=== PATIENT | female | born 1980 | race Hispanic/Latino ===

== ENCOUNTER 2018-04-15 23:40 | Inpatient (IN) | payer OTHER ==
--- OUTSIDE RECORDS SUMMARY | 2018-04-16 00:12 | XMS REPORT ---
:1980 Author Organization eClinicalWorks Care Team Providers Name Role Phone Reese Murphy Provider Role Unavailable Allergies No Known Allergies Problems Problem Type Condition Code Onset Dates Condition Status Problem Chronic neck pain M54.2 Active Problem Seasonal and perennial allergic J30.9 Active rhinitis Problem Sinus disorder J34.9 Active Problem GERD without esophagitis K21.9 Active Assessment Proteinuria, unspecified type R80.9 Active Problem Depression with anxiety F41.8 Active Assessment Tobacco use disorder F17.200 Active Assessment GERD without esophagitis K21.9 Active Problem Proteinuria, unspecified type R80.9 Active Problem Cancer C80.1 Active Problem Pollen allergies J30.1 Active Problem Mixed hyperlipidemia E78.2 Active Problem Controlled type 2 diabetes mellitus E11.9 Active without complication, without long-term current use of insulin Problem Dermatitis L30.9 Active Problem Depression F32.9 Active Assessment Mixed hyperlipidemia E78.2 Active Assessment Controlled type 2 diabetes mellitus E11.9 Active without complication, without long-term current use of insulin Problem Seasonal allergic rhinitis, J30.2 Active unspecified trigger Problem Elevated blood pressure reading R03.0 Active without diagnosis of hypertension Problem Asthma J45.909 Active Problem Gastroesophageal reflux disease K21.9 Active without esophagitis Assessment Depression with anxiety F41.8 Active Problem Anxiety F41.9 Active Problem Tobacco use disorder F17.200 Active Medications Medication Code Code Instructions Start End Date Status Dosage System Date Omeprazole [facility] 71841516980 40 MG Orally Active 1 capsule Once a day Zyrtec [facility] 57845390900 10 MG Orally Active 1 tablet Allergy Once a day Lipitor ND 06197983509 20 MG Orally Active 1 tablet Once a day Chantix ND 62467961021 1 MG Orally MarchJul 18, Active 1 tablet Continuing Twice a day 2017 Month Hernan Chantix [facility] 30592888595 0.5 MG X 11 & 1 March Inactive as directed Starting MG X 42 Orally 2017 Month Hernan use as directed Lisinopril ND 48207964798 5 MG Orally March Active 1 tablet Once a day 2017 Chantix [facility] 14659289532 1 MG Orally March Active 1 tablet Continuing Twice a day 2017 Month Hernan Prilosec OTC [facility] 07114191035 20 MG Orally Active 1 tablet Once a day Metformin HCl [facility] 26875957625 1000 MG Orally Active 1 tablet Twice a day with meals Results No Known Results Summary Purpose eClinicalWorks Submission
[2018-04-16] MEDS ORDERED: ONDANSETRON 4 MG/2 ML VIAL IV PRN (00:53)
[2018-04-16] MEDS ORDERED: AZITHROMYCIN IV 500 MG in NA CHLORIDE 0.9% 250 ML IVPB SCH ×2 (00:53→21:00)
--- NOTE | 2018-04-16 01:04 | P.HP ---
Certification for Inpatient Patient admitted to: Inpatient With expected LOS: >2 Midnights Practitioner: I am a practitioner with admitting privileges, knowledge of patient current condition, hospital course, and medical plan of care. Services: Services provided to patient in accordance with Admission requirements found in Title 42 Section 412.3 of the Code of Federal Regulations Patient History Date of Service: 04/16/18 Reason for admission: pneumonia History of Present Illness: Ms Croft os a 38 years old woman with history of DM II, dyslipidemia, who start about 5 days ago with progressive SOB, associated with cough and fever. The patient went to [facility] yesterday, and was diagnosed with pneumonia. She was discharged home with oral antibiotics, steroids and breathing treatments. However, today her SOB was significanly worse. Work up at [facility], WBC WNL, no fever, CT chest remarkable for RLL opacity consistent with pnuemonia. Subsequently the patient received Rocephin IV in [facility]. Then the patient was transferred to our facility for admission and treatment. Allergies No Known Allergies Allergy (Verified 04/16/18 00:22) - Past Medical/Surgical History Has patient received pneumonia vaccine in the past: No Diabetic: Yes -: NIDDM -: HLD -: Bronchitis -: Non-Hodgkins Lymphoma -: X2 - Family History Father -: Hypertension, Lung disease, Diabetes, Cancer, Liver disease Notes: pulmonary fibrosis Mother -: Hypertension, Diabetes Notes: hyperthyroid - Social History Smoking Status: Current every day smoker Counseled patient to stop smoking for: less than 10 minutes Alcohol use: Yes CD- Drugs: No Caffeine use: Yes Place of Residence: Home Review of Systems 10-point ROS is otherwise unremarkable Physical Examination - Physical Exam General: Alert, In no apparent distress HEENT: Atraumatic, PERRLA, Mucous membr. moist/pink, EOMI, Sclerae nonicteric Neck: Supple, 2+ carotid pulse no bruit, No LAD, Without JVD or thyroid abnormality Respiratory: Diminished, Crackles/rales, Expiratory wheezes Cardiovascular: Regular rate/rhythm, Normal S1 S2 Gastrointestinal: Normal bowel sounds, No tenderness Musculoskeletal: No tenderness Integumentary: No rashes Neurological: Normal speech, Normal strength at 5/5 x4 extr, Normal tone, Normal affect Lymphatics: No axilla or inguinal lymphadenopathy Assessment and Plan - Problems (Diagnosis) (1) Pneumonia Current Visit: Yes Status: Acute (2) Diabetes mellitus Current Visit: Yes Status: Acute Qualifiers: Diabetes mellitus type: type 2 Diabetes mellitus intermediate insulin use: without termite technician use Diabetes mellitus complication status: with unspecified complications Qualified Code(s): E11.8 - Type 2 diabetes mellitus with unspecified complications (3) Dyslipidemia Current Visit: Yes Status: Acute - Plan The patient will be admitted to the hospital due to tight lower lobe pneumonia. Will start treatment with IV steroids due to significant bronchospasm, breathing treatments and IV steroids. Will order SSI for blood sugar control. - Advance Directives Does patient have a Living Will: No Does patient have a Durable POA for Healthcare: No - Code Status/Comfort Care Code Status Assessed: Yes Code Status: Full Code
[2018-04-16 01:47] LABS: Urine Appearance CLEAR; Urine Bilirubin NEGATIVE (NEG); Urine Blood NEGATIVE (NEG); Urine Color YELLOW; Urine Glucose NEGATIVE (NEG); Urine Protein NEGATIVE (NEG); Urine Specific Gravity <=1.005 (1.005-1.030); Urine Urobilinogen 0.2 mg/dL (0.2-1.0)
[2018-04-16] MEDS ORDERED: AZITHROMYCIN 500 MG/250 ML BAG ONE (01:49)
[2018-04-16] MEDS: NA CHLORIDE 0.9% 1,000 ML IV SCH ×3 (01:56→21:00)
[2018-04-16 01:57] LABS: Urine Microscopic Reflex NO UMIC
[2018-04-16] MEDS: ACETAMINOPHEN 500 MG TAB PO PRN ×2 (02:04→16:12)
[2018-04-16] MEDS: IPRATROPIUM BROM 0.5MG/2.5ML NEB SCH ×5 (03:20→19:16)
[2018-04-16] MEDS: ALBUTEROL 2.5 MG/3 ML NEB SOL NEB SCH ×5 (03:20→19:16)
[2018-04-16 05:11] LABS: Absolute Lymphocytes (CBC) 0.7 K/uL (0.7-4.9); Absolute Monocytes 0.2 K/uL (0.1-1.3); Absolute Neutrophil 6.6 K/uL (1.8-8.0); Basophils % 0.2 % (0-1.3); Lymphocytes % 9.2 % (15.3-44.8); MCH 29.9 pg (27.0-35.0); MCV 90.9 fL (80-100); MPV 7.9 fL (7.6-11.3); Monocytes % 3.3 % (3.3-12.3); RBC Red Blood Cell Count 4.62 M/uL (3.86-4.86)
[2018-04-16 05:33] LABS: Blood Morphology Comment NOT SEEN (NOT SEEN); Platelet Estimate ADEQ; Urine White Blood Cell Casts OK
[2018-04-16 05:52] LABS: Magnesium 1.7 mg/dL (1.8-2.5)
[2018-04-16] MEDS ORDERED: MAGNESIUM SULFATE 1 gm IVPB 1 GM/100 ML BAG IV ONE (05:55)
[2018-04-16] MEDS: ENOXAPARIN 40 MG/0.4 ML SQ SCH (08:45)
[2018-04-16] MEDS: INSULIN -REGULAR HUMAN 50 UNIT/0.5 ML ML SQ SCH ×4 (08:45→21:00)
[2018-04-16] MEDS ORDERED: CEFTRIAXONE/SWI 1gm 1 GM/10 ML SYR IV SCH (09:00)
[2018-04-16] MEDS ORDERED: CEFTRIAXONE 1 GM/NS 50 ML 1 GM/50 ML BAG IV SCH (09:00)
[2018-04-16] MEDS ORDERED: ZOLPIDEM TARTRATE 5 MG TABLET PO PRN (21:57)
[2018-04-17] MEDS: IPRATROPIUM BROM 0.5MG/2.5ML NEB SCH ×3 (04:00→07:40)
[2018-04-17] MEDS: ALBUTEROL 2.5 MG/3 ML NEB SOL NEB SCH ×4 (04:06→11:30)
[2018-04-17] MEDS: NA CHLORIDE 0.9% 1,000 ML IV SCH (04:41)
[2018-04-17 05:28] LABS: Absolute Lymphocytes (CBC) 2.2 K/uL (0.7-4.9); Absolute Monocytes 0.9 K/uL (0.1-1.3); Absolute Neutrophil 5.1 K/uL (1.8-8.0); Basophils % 0.3 % (0-1.3); Hematocrit 39.9 % (36.0-45.0); Lymphocytes % 27.2 % (15.3-44.8); MCH 30.6 pg (27.0-35.0); MCV 91.3 fL (80-100); MPV 7.6 fL (7.6-11.3); Monocytes % 10.8 % (3.3-12.3); RBC Red Blood Cell Count 4.37 M/uL (3.86-4.86)
[2018-04-17 05:52] LABS: BUN Blood Urea Nitrogen 10 mg/dL (6-20); Bicarbonate 24 mEq/L (21-31); Glucose Level 145 mg/dL (65-120); Potassium 3.3 mEq/L (3.6-5.0); Sodium Level 141 mEq/L (135-145)
[2018-04-17] MEDS: KCL 20 MEQ/100 mL IVPB 20 MEQ/100 ML BAG IV SCH ×2 (06:41→08:59)
[2018-04-17] MEDS: INSULIN -REGULAR HUMAN 50 UNIT/0.5 ML ML SQ SCH ×2 (07:30→11:20)
[2018-04-17] MEDS ORDERED: ARFORMOTEROL TARTRATE 15 MCG/2 ML VIAL.NEB NEB SCH (08:40)
--- NOTE | 2018-04-17 08:44 | P.CNS ---
Chief Complaint: Shortness of breath cough History of Present Illness: Patient is 38 years of age became sick last Osorio she went to see a primary care doctor a month ago was told that she had bronchitis treat with conservative management and became worse developed fever last Saturday went to the emergency room worsening shortness of breath was treated with the steroids antibiotics inhaler was discharged became worse again to back to the emergency room and was transferred here to the hospital prior to that she was doing well patient has a history of childhood asthma he is not take any bronchodilators apart from diabetes and prior history of non-Hodgkin's lymphoma in her 20s no other significant medical problems she does however smoker denies any baseline dyspnea no prior history of cardiac problems is been no change since admission Allergies No Known Allergies Allergy (Verified 04/16/18 00:22) Home Medications: Albuterol Sulfate [Proair Hfa] 1 puff IH BID 04/16/18 Atorvastatin Calcium [Lipitor*] 20 mg PO DAILY 04/16/18 Azithromycin 250 mg PO DAILY 04/16/18 Lisinopril [Prinivil*] 5 mg PO DAILY 04/16/18 Metformin HCl 1,000 mg PO BID 04/16/18 Omeprazole [Prilosec] 40 mg PO DAILY 04/16/18 Prednisone 20 mg PO TID 04/16/18 Varenicline Tartrate [Chantix] 1 tab PO BID 04/16/18 - Past Medical/Surgical History Diabetic: Yes -: NIDDM -: HLD -: Bronchitis -: Non-Hodgkins Lymphoma -: X2 - Family History Father Medical History: Hypertension, Lung disease, Diabetes, Cancer, Liver disease Notes: pulmonary fibrosis Mother Medical History: Hypertension, Diabetes Notes: hyperthyroid - Social History Smoking Status: Current every day smoker Alcohol use: Yes CD- Drugs: No Caffeine use: Yes Place of Residence: Home Review of Systems General: Fever, Weakness Respiratory: Cough, Shortness of Breath Cardiovascular: Chest Pain Physical Examination Temp Pulse Resp BP Pulse Ox 98.0 F 92 H 16 109/66 97 04/17/18 04:00 04/17/18 04:00 04/17/18 04:00 04/17/18 04:00 04/17/18 04:00 General: Alert, Oriented x3 Respiratory: Expiratory wheezes Cardiovascular: No edema, Normal S1 S2 Gastrointestinal: Normal bowel sounds, Soft and benign, Non-distended Laboratory Data (last 24 hrs) 04/17/18 04:39: Sodium 141, Potassium 3.3 L, BUN 10, Creatinine 0.66, Glucose 145 H 04/17/18 04:39: WBC 8.2, Hgb 13.4, Hct 39.9, Plt Count 168 - Problems (1) Pneumonia Onset Date: 04/16/18 Current Visit: Yes Status: Acute Plan: Patient is 38 years of age became sick over the weekend shortness of breath fever cough congestion. CT scan report as per H&P states that she may have a pneumonia patient's pro calcitonin level is negative chemistries unremarkable normal white count not rated coughing up any phlegm patient has marked wheezing and active smoker I suggest levofloxacin for not chest x-ray PA and lateral and realized bronchodilators suggest trying her on some Dulera for now start her on low-dose prednisone for greater room-air oxygenation in console not to smoke
[2018-04-17] MEDS ORDERED: HYDROCODONE/CHLORPHEN 5 ML/OSYR PO PRN (08:45)
[2018-04-17] MEDS: ENOXAPARIN 40 MG/0.4 ML SQ SCH (08:58)
[2018-04-17] MEDS ORDERED: levoFLOXacin 500 MG TAB PO SCH (09:00)
[2018-04-17] MEDS ORDERED: DULERA 200/5 (MOMETASONE/FORMOTEROL) INHALER IH SCH (09:00)
[2018-04-17] MEDS ORDERED: predniSONE 20 MG TAB PO SCH (09:00)
--- NOTE | 2018-04-17 10:25 | RAD REPORT ---
EXAM DESCRIPTION: RAD - Chest Pa And Lat (2 Views) - 04/17/2018 9:49 am CLINICAL HISTORY: Pneumonia COMPARISON: None. TECHNIQUE: PA and lateral views of the chest were obtained. FINDINGS: The lungs are normal volume. Interstitial markings are prominent throughout the lung field s with slight bronchial wall thickening. Baseline for the patient is unknown. There is a focal massli ke density in the posterior right lung base. In the acute clinical setting this is most likely a smal l pneumonia. An aggressive mass would not be expected in a patient this age. Heart size is normal and central vasculature is within normal limits. No pleural effusion or pneu mothorax seen. No acute bony finding noted. No aortic abnormality. IMPRESSION: Small posterior right lung base pneumonia. Overall prominence of the interstitial markings with baseline unknown. This could be viral infiltrate or reactive airway disease in the acute setting.
--- NOTE | 2018-04-17 13:28 | P.DS ---
Admission Date: 04/15/18 Discharge Date: 04/17/18 Disposition: ROUTINE DISCHARGE Discharge Condition: GOOD Reason for Admission: Shortness of breath cough Consultations: Pulmonology - Problems (1) Asthma Status: Acute Qualifiers: Asthma severity: moderate Asthma persistence: persistent Asthma complication type: with acute exacerbation Qualified Code(s): J45.41 - Moderate persistent asthma with (acute) exacerbation (2) Diabetes mellitus Onset Date: 04/16/18 Status: Acute Qualifiers: Diabetes mellitus type: type 2 Diabetes mellitus halfway insulin use: without halfway use Diabetes mellitus complication status: with unspecified complications Qualified Code(s): E11.8 - Type 2 diabetes mellitus with unspecified complications (3) Dyslipidemia Onset Date: 04/16/18 Status: Acute (4) Pneumonia Onset Date: 04/16/18 Status: Acute Qualifiers: Pneumonia type: due to unspecified organism Laterality: right Lung location: lower lobe of lung Qualified Code(s): J18.1 - Lobar pneumonia, unspecified organism Brief History of Present Illness: See HPI Hospital Course: Overall during the hospital course patient remained stable. Patient was initially admitted to the hospital for fever cough and congestion. Patient was found to have pneumonia on the CT scan at the urgent care. Patient was then transferred here for IV antibiotics. Patient remained on IV Rocephin and azithromycin here in the hospital. Pulmonology was consulted. Patient had normal white blood cell count and negative pro calcitonin thus most likely reason for hers symptoms were viral illness. Patient then was discontinued on Rocephin and was switched over to p.o. Levaquin. Patient also has underline asthma which probably was having asthma exacerbation at this time. Pulmonology recommended the patient be started on Dulera, prednisone 20 mg b.i.d. with tapering dose and was educated extensively on smoking cessation. Patient will be followed up with pulmonology outpatient in about 1-2 days post discharge. Patient is to also follow up with her primary care provider. Patient was able to be successfully weaned off to nasal cannula and then to room air with 90-95% saturation. Overall patient was doing well. Vital Signs/Physical Exam: Temp Pulse Resp BP Pulse Ox 98.2 F 96 H 18 130/72 96 04/17/18 12:00 04/17/18 12:00 04/17/18 12:00 04/17/18 12:00 04/17/18 12:00 General: Alert, In no apparent distress HEENT: Atraumatic, PERRLA, EOMI Neck: Supple, JVD not distended Respiratory: Normal air movement, Expiratory wheezes, Inspiratory wheezes Cardiovascular: Regular rate/rhythm, Normal S1 S2 Gastrointestinal: Normal bowel sounds, No tenderness Musculoskeletal: No tenderness Integumentary: No rashes Neurological: Normal speech, Normal tone, Normal affect Lymphatics: No axilla or inguinal lymphadenopathy Laboratory Data at Discharge: WBC 8.2 K/uL (4.3-10.9) 04/17/18 04:39 Hgb 13.4 g/dL (12.0-15.0) 04/17/18 04:39 Hct 39.9 % (36.0-45.0) 04/17/18 04:39 Plt Count 168 K/uL (152-406) 04/17/18 04:39 Sodium 141 mEq/L (135-145) 04/17/18 04:39 Potassium 3.3 mEq/L (3.6-5.0) L 04/17/18 04:39 BUN 10 mg/dL (6-20) 04/17/18 04:39 Creatinine 0.66 mg/dL (0.44-1.00) 04/17/18 04:39 Glucose 145 mg/dL (65-120) H 04/17/18 04:39 Magnesium 1.7 mg/dL (1.8-2.5) L 04/16/18 04:45 Home Medications: Albuterol Sulfate [Proair Hfa] 1 puff IH BID 04/16/18 Atorvastatin Calcium [Lipitor*] 20 mg PO DAILY 04/16/18 Lisinopril [Prinivil*] 5 mg PO DAILY 04/16/18 Metformin HCl 1,000 mg PO BID 04/16/18 Omeprazole [Prilosec] 40 mg PO DAILY 04/16/18 Varenicline Tartrate [Chantix] 1 tab PO BID 04/16/18 Levofloxacin [Levaquin*] 500 mg PO DAILY #10 cap 04/17/18 Mometasone/Formoterol [Dulera 200 Mcg/5 Mcg Inhaler] 2 puff IH BID #1 inhaler Prednisone [Prednisone*] 20 mg PO BID #20 tab 04/17/18 New Medications: Levofloxacin [Levaquin*] 500 mg PO DAILY #10 cap Mometasone/Formoterol [Dulera 200 Mcg/5 Mcg Inhaler] 2 puff IH BID #1 inhaler Prednisone [Prednisone*] 20 mg PO BID #20 tab Patient Discharge Instructions: Please f/u with PCP in [address] Dillard in 1 week post discharge. New medication. Dulera 2puff BID daily. Levaquin 500mg Daily for 10 days. Prednisone 20mg BID for 5 days after that Prednisone 10mg BID for 5 days then prednisone 10mg daily for 5 days Diet: Regular Activity: Ad janny Followup: Micha Lance MD [ACTIVE - CAN ADMIT] - 1 Week (call to schedule appointment)
[2018-04-17] MEDS ORDERED: IPRATROPIUM BROM 0.5MG/2.5ML NEB SCH (14:00)
== END 2018-04-17 13:10 | disposition home or self-care (01) | DRG 194 ==
LOC: 2ND 23:40
PROVIDERS: ADMIT Internal Medicine; ATTEND Internal Medicine
DX: J18.9 Pneumonia, unspecified organism (principal); J45.41 Moderate persistent asthma with (acute) exacerbation; E11.9 Type 2 diabetes mellitus without complications; E78.5 Hyperlipidemia, unspecified; Z85.72 Personal history of non-Hodgkin lymphomas; F17.210 Nicotine dependence, cigarettes, uncomplicated
CPT/HCPCS: 36415; 71046; 80048; 81003; 82962; 83735; 84145; 85025; 87040; 94640; 94760; J0456; J0696; J1650; J3475; J7030; J7512; J7606

== ENCOUNTER 2020-06-30 11:37 | Day surgery (SDC) | payer OTHER ==
[2020-06-28 10:12] LABS: Urine Appearance CLEAR; Urine Bilirubin NEGATIVE (NEG); Urine Blood NEGATIVE (NEG); Urine Color YELLOW; Urine Glucose 3+ (NEG); Urine Protein NEGATIVE (NEG); Urine Specific Gravity >=1.030 (1.005-1.030); Urine Urobilinogen 0.2 mg/dL (0.2-1.0)
[2020-06-28 10:15] LABS: Urine Microscopic Reflex NO UMIC
[2020-06-28 10:20] LABS: Absolute Lymphocytes (CBC) 2.6 K/uL (0.7-4.9); Hematocrit 43.6 % (36.0-45.0); Lymphocytes % 24.9 % (15.3-44.8); MPV 7.9 fL (7.6-11.3); RBC Red Blood Cell Count 4.75 M/uL (3.86-4.86)
--- OUTSIDE RECORDS SUMMARY | 2020-06-30 11:53 | XMS REPORT | Summary of Care ---
:1980 Author Organization [facility] Address [address] [place] [id number] Care Team Providers Name Role Phone Pcp, Patient Does Not Have A Primary Care Provider [phone] Reason for Visit Reason Comments Breast Problem (Routine) Status Reason Specialty Diagnoses / Referred By Referred To Procedures Contact Contact Authorized [facility] / Diagnoses Other abnormal and inconclusive findings on diagnostic imaging of breast Gianni Barth [facility] Surgery Procedures CONSULT/REFERRAL BREAST SURGERY MD Moni Coughlin MD [address] [place] [address], [phone] [place] [address] Phone: Fax: Encounter Details Date Type Department Care Team Description 06/14/2020 Office Visit [facility] Surgical Radha Archer [address] st mass in female Specialties - Jayla Montenegro MD (Primary Dx) [address] [place] [phone] Allergies No Known Allergiesdocumented as of this encounter (statuses as of 06/14/2020) Medications Medication Sig Dispensed Refills Start Date End Date Status diazePAM 10 mg tablet 0 06/06/2020 Active OMEPRAZOLE ORAL Take by mouth. 0 Active LISINOPRIL ORAL Take by mouth. 0 Active dapagliflozin/metformin Take by mouth. 0 Active HCl (XIGDUO XR ORAL) documented as of this encounter (statuses as of 06/14/2020) Active Problems Problem Noted Date Breast mass in female 06/14/2020 documented as of this encounter (statuses as of 06/14/2020) Social History Tobacco Use Types Packs/Day Years Used Date Current Every Day Smoker Cigarettes Smokeless Tobacco: Never Used Sex Assigned at Date Recorded Not on file Job Start Date Occupation Industry Not on file Not on file Not on file Travel History Travel Start Travel End No recent travel history available. COVID-19 Exposure Response Date Recorded In the last month, have you been in contact with No / Unsure 06/14/2020 3:14 PM CDT someone who was confirmed or suspected to have Coronavirus / COVID-19? documented as of this encounter Last Filed Vital Signs Vital Sign Reading Time Taken Comments Blood Pressure 130/80 06/14/2020 3:17 PM CDT Pulse 82 06/14/2020 3:17 PM CDT Temperature 37 C (98.6 F) 06/14/2020 3:17 PM CDT Respiratory Rate 20 06/14/2020 3:17 PM CDT Oxygen Saturation 98% 06/14/2020 3:17 PM CDT Inhaled Oxygen Concentration - - Weight 86.5 kg (190 lb 9.6 oz) 06/14/2020 3:17 PM CDT Height 167.6 cm (5' 6") 06/14/2020 3:17 PM CDT Body Mass Index 30.76 06/14/2020 3:17 PM CDT documented in this encounter Progress Notes Radha Marcano RN - 06/14/2020 3:00 PM CDVaishali Boateng is a 40 year old female comes to clinic independent in ambulation for bilateral breast mass. Pt comes alone . Pt in NAD w/ pain reported 0/10. Pt preferred language is Montenegrin. Pt. denies fall in last 12 months. Allergies and medications reviewed and updated. Radha Archer MD - 06/14/2020 3:00 PM CDT 40 year old woman referred with a mammogram that showed a 17mm by 18mm lobulated mass at 6 oclock ofthe right breast. US demonstrated the same. Then on MRI from [facility] it showed the right breast was 27 x 18 and showed in addition a poorly marginated somewhat spiculated upper inner quadrant left enhancing lesion measuring 11 x 11 mm in the upper inner left breast not seen on mammogram. Of note history of Hodgkins lymphoma treated with only removal of left sided lymph nodes and NO XRT Cc: Abnormal mammogram HPI 40 year old woman referred with a mammogram that showed a 17mm by 18mm lobulated mass at 6 oclock ofthe right breast. US demonstrated the same. Then on MRI from [facility] it showed the right breast was 27 x 18 and showed in addition a poorly marginated somewhat spiculated upper inner quadrant left enhancing lesion measuring 11 x 11 mm in the upper inner left breast not seen on mammogram. I have thereports and she brought the disc from the MRI but not the mammogram. Allergies Ag has No Known Allergies. Medications Outpatient Medications Prior to Visit Medication Sig Dispense Refill dapagliflozin/metformin HCl (XIGDUO XR ORAL) Take by mouth. LISINOPRIL ORAL Take by mouth. OMEPRAZOLE ORAL Take by mouth. diazePAM 10 mg tablet No facility-administered medications prior to visit. Histories History reviewed. No pertinent past medical history. History reviewed. No pertinent surgical history. Social History Socioeconomic History Marital status: Single Spouse name: Not on file Number of children: Not on file Years of education: Not on file Highest education level: Not on file Occupational History Not on file Social Needs Financial resource strain: Not on file Food insecurity: Worry: Not on file Inability: Not on file Transportation needs: Medical: Not on file Non-medical: Not on file Tobacco Use Smoking status: Current Every Day Smoker Types: Cigarettes Smokeless tobacco: Never Used Substance and Sexual Activity Alcohol use: Not on file Drug use: Not on file Sexual activity: Not on file Lifestyle Physical activity: Days per week: Not on file Minutes per session: Not on file Stress: Not on file Relationships Social connections: Talks on phone: Not on file Gets together: Not on file Attends sikh service: Not on file Active member of club or organization: Not on file Attends meetings of clubs or organizations: Not on file Relationship status: Not on file Intimate partner violence: Fear of current or ex partner: Not on file Emotionally abused: Not on file Physically abused: Not on file Forced sexual activity: Not on file Other Topics Concern Not on file Social History Narrative Not on file History reviewed. No pertinent family history. Review of Systems I have reviewed the patients ROS including head,neck,thyroid,lymph nodes, nausea, vomiting, diahrea, fever, chills, skin changes, cough, dyspnea, irregular heart beat,arm swelling, hernia, leg swelling, bone ache, anemia, allergies dizziness, exercise intolerance and they are all negative except abnor mal mammogram and masses Vital Signs BP 130/80 (BP Location: Right arm, Patient Position: Sitting, BP CUFF SIZE: Adult Large) | Pulse 82 | Temp 37 C (98.6 F) (Temporal Artery) | Resp 20 | Ht 5' 6" (1.676 m) | Wt 190 lb 9.6 oz (86.5 kg) | SpO2 98% | BMI 30.76 kg/m Physical Exam General: Well developed, well nourished, in no acute distress. ECOG 0, No history of LE Head: normocephalic and atraumatic Eyes: Conjunctiva and sclera clear. Ears: Hearing grossly intact with no external abnormality. Nose: No deformity, discharge, inflammation or lesions. Mouth: No deformity or lesions Neck: No masses, thyroidomegaly, or abnormal cervical nodes. Chest wall: No deformities noted. Breasts: No mass, pain or nipple DC Axillary Lymph nodes: negative Supraclavicular Lymph nodes: negative Lungs: unlabored breathing, clear to auscultation Heart: RRR without murmur, gallop or rub. Abdomen: Abdomen soft non-tender without masses, organomegaly, or hernias noted. MSK: No deformitie or scoliosis noted with normal posture and gait. Extremities: No clubbing, cyanosis, edema, or deformity noted with range of motion Neurologic: no gross focal deficits Skin: intact without rash or cancerous lesion Psych: Alert and cooperative; normal mood and affect for circumstances. Right Ultrasound Procedure: A 12MHz probe was used to scan over the area of concern in the Right breast Location: 6 O'Clock; 3 CFN Size:19.9 x 9.4 x 16.6mm Margins were smooth Echogenicity was hypoechoic and homogenous Retrotumoral Pattern was none Sonographic Impression BIRADS 3 but requires a biopsy Left Ultrasound Procedure: A 12MHz probe was used to scan over the area of concern Location: O'Clock; CFN Size:16.6x 6.8 x 11.7 mm Margins were angulated Echogenicity was hypoechoic Retrotumoral Pattern was mixed Sonographic Impression BIRADS 4 requires biopsy to rule out malignancy Assessment/Plan Bilateral Breast Masses of BIRADS 3 on Right and BIRADS 4a on left both of which require a biopsy Set-up for biopsy next week under US guidance. documented in this encounter Plan of Treatment Date Type Specialty Care Team Description 06/21/2020 Office Visit Surgery Radha Archer MD [address] [place] [address] [phone] Health Maintenance Due Date Last Done Comments VARICELLA VACCINES (1 of 2 - 1983 2-dose childhood series) DTaP,Tdap,and Td Vaccines (1 - 1993 Tdap) PAP SMEAR 2003 INFLUENZA VACCINE (#1) 2020 Depression Screening 06/14/2021 06/14/2020 PNEUMOCOCCAL 0-64 YEARS COMBINED Aged Out No longer eligible based on SERIES patient's age to complete this topic documented as of this encounter Results Not on filedocumented in this encounter Visit Diagnoses Diagnosis Breast mass in female - Primary Lump or mass in breast documented in this encounter documented as of this encounter
--- OUTSIDE RECORDS SUMMARY | 2020-06-30 11:53 | XMS REPORT | Continuity of Care Document ---
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 Outpat i ent Clinics Sinus Sinus Problem Active [facility] disorder disorder [facility] Gastroesop Gastroesop Problem Active [facility] hageal hageal [facility] - reflux reflux Memoria disease disease l without without Outpati esophagiti esophagiti en t s s Clinics 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, a, [facility] - unspecifie unspecifie Me moria d type d type l Outpati ent Clinics Depression Depression Problem Active [facility] with with [facility] - anxiety anxiety [facility] Tobacco Tobacco Diagnosis Active [facility] use use [facility] - disorder disorder Memori a l [facility] ent Clinics Cancer Cancer Problem Active [facility] Pollen Pollen Problem Active [facility] allergies allergies [facility] Mixed Mixed Problem Active [facility] hyperlipid hyperlipid Estrella kes - emia emia [facility] Controlled Controlled Diagnosis Active [facility] type 2 type 2 [facility] - diabetes diabetes Memori a mellitus mellitus l without without Outpati complicati complicati en t on, on, Clinics without without long-term long-term current current use of use of insulin insulin Dermatitis Dermatitis Problem Active [facility] Depression Depression Problem Active [facility] Seasonal Seasonal Problem Active [facility] allergic allergic [facility] - rhinitis, rhinitis, Gilbert willem unspecifie unspecifie l d trigger d trigger Outp ati ent Clinics Elevated Elevated Problem Active [facility] blood blood [facility] - pressure pressure Memori a reading reading l without without Outpati diagnosis diagnosis ent of of Clinics hypertensi hypertensi on on Asthma Asthma Problem Active [facility] Anxiety Anxiety Problem Active [facility] Osteoarthr Osteoarthr Problem Active [facility] itis of 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 Medications Ordered Filled Start Stop Current Ordering Indication Dosage Frequency Signature Comments Components Source Medication Medication Date Date Medication? Clinician (SIG) Name Name Xigdou XR Xigdou XR 2019- No Reese [address] [facility]30 [facility] - 00:00: 00:00 [facility] 00 [facility] Duexis Duexis 2019- No Reese [address] [facility] - 00:[facility]: 00:00 [facility]oria 00 :[facility] MetFORMIN MetFORMIN Yes Reese [address] [facility] [address] HCl ER HCl ER 3- Murphy with [facility] - 00:00: evening Memoria 00 meal l [facility] Lisinopril Lisinopril Yes Reese [address] [facility] 03[facility]20 [facility] - 00:00: Memoria 00 l [facility] Chantix Chantix 2018- No Reese [address] [facility] 03-03 Murphy L - Month Hernan 00:00: 00:00 Me moria 00 :00 l [facility] Omeprazole Omeprazole Yes Reese [address] [facility] [address] [facility] Lipitor Lipitor Yes Reese [address] [facility] Dulera Dulera Yes Reese [address] Outpati ent Clinics Prilosec Prilosec Yes Reese [address] OTC OTC [facility] Omeprazole Omeprazole Yes Reese [address] [facility] Zyrtec Zyrtec Yes Reese 1 tablet [facility] Allergy [facility] Procedures This patient has no known procedures. Encounters Start End Encounter Admission Attending Care Care Encounter Source Date/Time Date/Time Type Type Clinicians Facility Department ID 2020-06-28 2020-06-28 Office Gianni [facility] [id number] 12:44:54 13:13:22 Visit Radha Shahid [id number] [place] [id number] [address] 2019-03-30 2019-03-30 [facility] [id number] 08:15:00 08:15:00 t [employer] [facility] - [facility] Medicine Outpati ent Clinics 2019-02-24 2019-02-24 [facility] [id number] 15:45:00 15:45:00 t [email or web address] [facility] - Drive [facility] Medicine Outpati ent Clinics 2019-01-27 2019-01-27 [facility] [id number] 09:45:00 09:45:00 t [email or web address] - Drive [facility] Medicine Outpati ent Clinics 2018-04-22 2018-04-22 [facility] [id number] 08:00:00 08:00:00 t [email or web address] - Drive [facility] Medicine Outpati ent Clinics 2018-04-18 2018-04-18 [facility] [id number] 09:29:00 09:29:00 t [email or web address] - Drive [facility] Medicine Outpati ent Clinics 2018-03-20 2018-03-20 [facility] [id number] 13:30:00 13:30:00 t [employer] [place] [facility] [employer] [facility] Medicine Outpati ent Clinics Results This patient has no known results.
--- OUTSIDE RECORDS SUMMARY | 2020-06-30 11:53 | XMS REPORT | Summary of Care ---
:1980 Author Organization [facility] - [facility] Address [address] [place] [address] Care Team Providers Name Role Phone Pcp, Patient Does Not Have A Primary Care Provider +1000-00 0-0000 Reason for Visit Reason Comments Breast Problem (Routine) Status Reason Specialty Diagnoses / Referred By Referred To Procedures Contact Contact Authorized SELINA-SURGERY / Diagnoses Other abnormal and inconclusive findings on diagnostic imaging of breast Gianni Barth [facility] Procedures CONSULT/REFERRAL BREAST SURGERY MD Moni Coughlin MD [address] [place] [address], [phone] [place] [address] Phone: Fax: Encounter Details Date Type Department Care Team Description 06/14/2020 Office Visit [facility] Surgical Radha Archer [address] st mass in female Specialties - Jayla Montenegro MD (Primary Dx) [address] [place] [phone] Allergies No Known Allergiesdocumented as of this [...] pain reported 0/10. Pt preferred language is Citizen Of [place]. Pt. denies fall in last 12 months. Allergies and medications reviewed and updated. Radha Archer MD - 06/14/2020 3:00 PM CDT 40 year old woman referred with a mammogram that showed a 17mm by 18mm lobulated mass at 6 oclock ofthe right breast. US demonstrated the same. Then on MRI from [facility] it showed the right breast was 27 [...] demonstrated the same. Then on MRI from [facility] it showed the right breast was 27 [...] file Gets together: Not on file Attends amish service: Not on file Active member of [...] 06/21/2020 Office Visit Surgery Radha Archer MD [address] [place] [address] [phone] Health Maintenance Due Date Last [...]
--- OUTSIDE RECORDS SUMMARY | 2020-06-30 11:54 | XMS REPORT | Summary of Care ---
:1980 Author Organization [facility] - [facility] Address [address] [place] [address] Care Team Providers Name Role Phone Pcp, Patient Does Not Have A Primary Care Provider +[id number] 0-0000 Reason for Visit Reason Comments Breast Problem (Routine) Status Reason Specialty Diagnoses / Referred By Referred To Procedures Contact Contact Authorized SELINA-SURGERY / Diagnoses Other abnormal and inconclusive findings on diagnostic imaging of breast Gianni Barth [facility] Surgery Procedures CONSULT/REFERRAL BREAST SURGERY MD Moni Coughlin MD [address] [place] [address], [phone] [place] [address] Phone: Fax: Encounter Details Date Type Department Care Team Description 06/14/2020 Office Visit [facility] Surgical Radha Archer [address] st mass in female Specialties - Jayla Montenegro MD (Primary Dx) [address] [place] [phone] Allergies No Known Allergiesdocumented as of this encounter (statuses as of 06/21/2020) Medications Medication Sig Dispensed Refills Start Date End Date Status diazePAM 10 mg tablet 0 06/06/2020 Active OMEPRAZOLE ORAL Take by mouth. 0 Active LISINOPRIL ORAL Take by mouth. 0 Active dapagliflozin/metformin Take by mouth. 0 Active HCl (XIGDUO XR ORAL) documented as of this encounter (statuses as of 06/21/2020) Active Problems Problem Noted Date Breast mass in female 06/14/2020 documented as of this encounter (statuses as of 06/21/2020) Social History Tobacco Use Types Packs/Day Years [...] Radha Marcano RN - 06/14/2020 3:00 PM CDTChbrandon Boateng is a 40 year old female comes to clinic independent in ambulation for bilateral breast mass. Pt comes alone . Pt in NAD w/ pain reported 0/10. Pt preferred language is Samoan. Pt. denies fall in last 12 months. Allergies and medications reviewed and updated. Radha Archer MD - 06/14/2020 3:00 PM CDT 40 year old woman referred with a mammogram that showed a 17mm by 18mm lobulated mass at 6 oclock ofthe right breast. US demonstrated the same. Then on MRI from [facility] it showed the right breast was [...] demonstrated the same. Then on MRI from [facility] it showed the right breast was [...] file Gets together: Not on file Attends lutheran service: Not on file Active member of [...] affect for circumstances. Right Ultrasound Procedure: A 15MHz probe was used to scan over the area of concern in the Right breast Location: 6 O'Clock; 3 CFN Size:19.9 x 9.4 x 16.6mm Margins were smooth Echogenicity was hypoechoic and homogenous Retrotumoral Pattern was none Sonographic Impression BIRADS 3 but requires a biopsy Left Ultrasound Procedure: A 15MHz probe was used to scan over the [...] Treatment Date Type Specialty Care Team Description 06/28/2020 Office Visit Surgery Radha Archer MD [address] [place] [address] [phone] Health Maintenance Due Date Last Done Comments VARICELLA VACCINES (1 of 2 - 2-dose childhood series) 1983 PNEUMOCOCCAL 0-64 YEARS COMBINED SERIES (1 of 1 - 1988 PPSV23) DTaP,Tdap,and Td Vaccines (1 - Tdap) 1993 PAP SMEAR 2003 INFLUENZA VACCINE (#1) 2020 Depression Screening 06/14/2021 06/14/2020 documented as of this encounter Results Not on filedocumented in this encounter Visit Diagnoses Diagnosis Breast mass in female - Primary Lump or mass in breast documented in this encounter documented as of this encounter
--- OUTSIDE RECORDS SUMMARY | 2020-06-30 11:54 | XMS REPORT | Summary of Care ---
:1980 Author Organization [facility] - [facility] Address [address] [place] [address] Care Team Providers Name Role Phone Pcp, Patient Does Not Have A Primary Care Provider +1-000-00 0-0000 Reason for Referral Radiology Services (Routine) Status Reason Specialty Diagnoses / Referred By Referred To Procedures Contact Contact New Request Diagnostic Diagnoses Breast mass in female Radha Archer Radiology Procedures BI DIAGNOSTIC MAMMOGRAM LAQUITA Montenegro MD [address] [place] [phone] Reason for Visit Reason Comments Procedure breast biopsy (Routine) Status Reason Specialty Diagnoses / Referred By Referred To Procedures Contact Contact Authorized SELINA-SURGERY / Diagnoses Other abnormal and inconclusive findings on diagnostic imaging of breast Gianni Barth [facility] Surgery Procedures CONSULT/REFERRAL BREAST SURGERY MD Moni Coughlin MD [address], [address] [place] [address] Phone: Fax: Encounter Details Date Type Department Care Team Description 06/21/2020 Office Visit [facility] Surgical Radha Archer [address] mass in female Specialties - Jayla Montenegro MD (Primary Dx) [address] [place] [phone] Allergies No Known Allergiesdocumented as of this [...] Day Smoker Cigarettes Smokeless Tobacco: Never Used Tobacco Cessation: Ready to Quit: No; Co unseling Given: No Sex Assigned at Date Recorded Not on [...] Sign Reading Time Taken Comments Blood Pressure 133/84 06/21/2020 2:28 PM CDT Pulse 80 06/21/2020 2:28 PM CDT Temperature 36.7 C (98 F) 06/21/2020 2:28 PM CDT Respiratory Rate 20 06/21/2020 2:28 PM CDT Oxygen Saturation 98% 06/21/2020 2:28 PM CDT Inhaled Oxygen Concentration - - Weight 82.1 kg (181 lb) 06/21/2020 2:28 PM CDT Height 165.1 cm (5' 5") 06/21/2020 2:28 PM CDT Body Mass Index 30.12 06/21/2020 2:28 PM CDT documented in this encounter Progress Notes Radha Archer MD - 06/21/2020 1:45 PM CDTHPI 40 year old woman referred with a mammogram that showed a 17mm by 18mm lobulated mass at 6 oclock of the right breast. US demonstrated the same. Then on MRI from [facility] it showed the right breast was 27 x 18 and showed in addition a poorly marginated somewhat spiculated upper inner quadrant left enhancing lesion measuring 11 x 11 mm in the upper inner left breast not seen on mammogram. I havethe reports and she brought the disc from the MRI but not the mammogram. My US findings are below from 06/14. Right Ultrasound Procedure: A 15MHz probe was [...] 4 requires biopsy to rule out malignancy She returns today for biopsy of both lesions. PROCEDURE :Right US guided breast biopsy After informed consent, the patient was prepped and draped in the usual sterile fashion. Local anesthesia was obtained with 15cc of a mixture of 1% lidocaine and marcaine with epi. Using a 15MHz US probe and using the 10 gauge mammotome elite was positioned below the lesion and 10 cores were obtained rotating from side to side. The lesion was not completely removed. A coil clip was placed via US guidance. Pressure was held for 10 minutes and the incision closed with Dermabond. PROCEDURE :Left US guided breast biopsy After informed consent, the patient was prepped and draped in the usual sterile fashion. Local anesthesia was obtained with 12cc of a mixture of 1% lidocaine and marcaine with epi. Using a 15MHz US probe and using the 10 gauge mammotome elite was positioned below the lesion and 10 cores were obtained rotating from side to side. The lesion was near completely removed. A coil clip was placed via US guidance in the biopsy bed. Pressure was held for 10 minutes and the incision closed with Dermabond. Patient tolerated the procedures well and was given post biopsy instructions. Bilateral Mammograms were ordered post biopsy for clip placement. She will RTC in one week for results. Radha Momin RN - 06/21/2020 1:45 PM Tyronkai Boateng is a 40 year old female comes to clinic independent in ambulation for breast biopsy.Pt comes alone . Pt in NAD w/ pain reported 0/10. Pt preferred language is Georgian. Pt. denies fall in last 12 months. Allergies and medications reviewed and updated. documented in this encounter Plan of Treatment Date Type Specialty Care Team Description 06/28/2020 Office Visit Surgery Radha Archer MD [address] [place] [address] [phone] Name Type Priority Associated Diagnoses Date/Ti me SURGICAL PATHOLOGY EXAM LAB Routine Breast mass in fe male 06/21/2020 5:52 PM CDT Name Type Priority Associated Diagnoses Order S chedule SURGICAL PATHOLOGY EXAM LAB Routine Breast mass in fe male Expected: 06/21/2020, Expires: 2020 BI DIAGNOSTIC MAMMOGRAM IMAGING Routine Breast mass in fe male Expected: 06/21/2020, BILATERAL Expires: 2020 Health Maintenance Due Date Last Done Comments [...]
--- OUTSIDE RECORDS SUMMARY | 2020-06-30 11:54 | XMS REPORT | Summary of Care ---
:1980 Author Organization [facility] - Health Address [address] [place] [address] Care Team Providers Name Role Phone Pcp, Patient Does Not Have A Primary Care Provider +1000-00 0-0000 Encounter Details Date Type Department Care Team Description 06/21/2020 Orders Only [facility] Doctor Unassigned, No [address] [facility] [place] [address] [place] [address] Allergies No Known Allergiesdocumented as of this encounter (statuses as of 06/23/2020) Medications Medication Sig Dispensed Refills Start Date End Date Status diazePAM 10 mg tablet 0 06/06/2020 Active OMEPRAZOLE ORAL Take by mouth. 0 Active LISINOPRIL ORAL Take by mouth. 0 Active dapagliflozin/metformin Take by mouth. 0 Active HCl (XIGDUO XR ORAL) documented as of this encounter (statuses as of 06/23/2020) Active Problems Problem Noted Date Breast mass in female 06/14/2020 documented as of this encounter (statuses as of 06/23/2020) Social History Tobacco Use Types Packs/Day Years [...] been in contact with No / Unsure 06/22/2020 2:35 PM CDT someone who was confirmed or suspected to have Coronavirus / COVID-19? documented as of this encounter Last Filed Vital Signs Not on filedocumented in this encounter Plan of Treatment Date Type Specialty Care Team Description 06/28/2020 Office Visit Surgery Radha Archer MD [address] [place] [address] [phone] 07/19/2020 Appointment Radiology Radha Archer MD [address] [place] [address] [phone] 07/19/2020 Appointment Radiology Radha Archer MD [address] [place] [address] [phone] Health Maintenance Due Date Last Done Comments VARICELLA VACCINES (1 of 2 - 2-dose childhood series) 1983 PNEUMOCOCCAL 0-64 YEARS COMBINED SERIES (1 of 1 - 1988 PPSV23) DTaP,Tdap,and Td Vaccines (1 - Tdap) 1993 PAP SMEAR 2003 INFLUENZA VACCINE (#1) 2020 Depression Screening 06/14/2021 06/14/2020 documented as of this encounter Procedures Procedure Name Priority Date/Time Associated Diagnosis Comme nts DISCLOSURE AND CONSENT, Routine 06/21/2020 12:01 AM MEDICAL AND SURGICAL CDT PROCEDURES documented in this encounter Results Not on filedocumented in this encounter Insurance Payer Benefit Plan / Group Subscriber ID Effective Dates Phone Address Type CIGNA CIGNA GENERIC [id number] 2020-Present HMO/PPO/POS documented as of this encounter
--- OUTSIDE RECORDS SUMMARY | 2020-06-30 11:54 | XMS REPORT | Summary of Care ---
:1980 Author Organization [facility] Address [address] [place] [address] Care Team Providers Name Role Phone Pcp, Patient Does Not Have A Primary Care Provider +1-000-00 0-0000 Reason for Referral MRI/CAT Scan (Routine) Status Reason Specialty Diagnoses / Referred By Referred To Procedures Contact Contact New Request Diagnostic Diagnoses Breast mass in female Gramm, Noreen Radiology Procedures MR BREAST BILATERAL W WO CONTRAST A, INFORMATION SECURITY RISK ANALYST [address] Pranay [address] [place] [address] Radiology Services (Routine) Status Reason Specialty Diagnoses / Referred By Referred To Procedures Contact Contact New Request Diagnostic Diagnoses Breast mass in female Gramm, Noreen Radiology Procedures BI ULTRASOUND BREAST COMPLETE BILATERAL A, INFORMATION SECURITY RISK ANALYST [address] Pranay [address] [place] [address] Radiology Services (Routine) Status Reason Specialty Diagnoses / Referred By Referred To Procedures Contact Contact New Request Diagnostic Diagnoses Breast mass in female Gramm, Noreen Radiology Procedures BI DIAGNOSTIC MAMMOGRAM BILATERAL A, INFORMATION SECURITY RISK ANALYST [address] Pranay [address] [place] [address] Reason for Visit Reason Comments Breast Pain Encounter Details Date Type Department Care Team Description 06/16/[address] [facility] Urology- Gramm, Lauren la A, INFORMATION SECURITY RISK ANALYST Breast Pain [place] [address] 146 [facility] Driv e [address] [address] [phone] Allergies No Known Allergiesdocumented as of this encounter (statuses as of 06/16/2020) Medications Medication Sig Dispensed Refills Start Date End Date Status diazePAM 10 mg tablet 0 06/06/2020 Active OMEPRAZOLE ORAL Take by mouth. 0 Active LISINOPRIL ORAL Take by mouth. 0 Active dapagliflozin/metformin Take by mouth. 0 Active HCl (XIGDUO XR ORAL) documented as of this encounter (statuses as of 06/16/2020) Active Problems Problem Noted Date Breast mass in female 06/14/2020 documented as of this encounter (statuses as of 06/16/2020) Social History Tobacco Use Types Packs/Day Years [...] 06/21/2020 Office Visit Surgery Radha Archer MD [address] [place] [phone] Name Type Priority Associated Diagnoses Order S chedule BI DIAGNOSTIC MAMMOGRAM IMAGING Routine Breast mass in fe male Expected: 06/16/2020, BILATERAL Expires: 2020 BI ULTRASOUND BREAST IMAGING Routine Breast mass in femal e Expected: 06/16/2020, COMPLETE BILATERAL Expires: 08/17/2021 MR BREAST BILATERAL W WO IMAGING Routine Breast mass in f emale Expected: 06/16/2020, CONTRAST Expires: 2020 Health Maintenance Due Date Last [...] mass in breast documented in this encounter Insurance Payer Benefit Plan / Group Subscriber ID Effective Dates Phone Address Type CIGNA CIGNA GENERIC [id number] 2020-Present HMO/PPO/POS documented as of this encounter
--- OUTSIDE RECORDS SUMMARY | 2020-06-30 11:54 | XMS REPORT | Summary of Care ---
:1980 Author Organization [facility] - [facility] Address [address] [place] [address] Care Team Providers Name Role Phone Pcp, Patient Does Not Have A Primary Care Provider +1-000-00 0-0000 Reason for Referral Radiology Services (Routine) Status Reason Specialty Diagnoses / Referred By Referred To Procedures Contact Contact New Request Diagnostic Diagnoses Breast mass in female Radha Archer Radiology Procedures BI DIAGNOSTIC MAMMOGRAM LAQUITA Montenegro MD [address] [place] [phone] Reason for Visit Reason Comments Procedure breast biopsy (Routine) Status Reason Specialty Diagnoses / Referred By Referred To Procedures Contact Contact Authorized SELINA-SURGERY / Diagnoses Other abnormal and inconclusive findings on diagnostic imaging of breast Gianni Barth [facility] Surgery Procedures CONSULT/REFERRAL BREAST SURGERY MD Moni Coughlin MD [address], [address] [place] [address] Phone: Fax: Encounter Details Date Type Department Care Team Description 06/21/2020 Office Visit [facility] Surgical Radha Archer [place] st mass in female Specialties - Jayla Montenegro MD (Primary Dx) [address] [place] [phone] Allergies No Known Allergiesdocumented as [...] demonstrated the same. Then on MRI from [facility] it showed the right breast was [...] pain reported 0/10. Pt preferred language is Namibian. Pt. denies fall in last 12 months. Allergies and medications reviewed and updated. documented in this encounter Plan of Treatment Date Type Specialty Care Team Description 06/28/2020 Office Visit Surgery Radha Archer MD [address] [place] [phone] Name Type Priority Associated Diagnoses [...]
--- OUTSIDE RECORDS SUMMARY | 2020-06-30 11:54 | XMS REPORT | Summary of Care ---
:1980 Author Organization [facility] - [facility] Address [address] [place] [address] Care Team Providers Name Role Phone Pcp, Patient Does Not Have A Primary Care Provider +1-000-00 0-0000 Reason for Referral Radiology Services (Routine) Status Reason Specialty Diagnoses / Referred By Referred To Procedures Contact Contact New Request Diagnostic Diagnoses Breast mass in female Radha Archer Radiology Procedures BI DIAGNOSTIC MAMMOGRAM LAQUITA Montenegro MD [address] [place] [phone] Reason for Visit Reason Comments Procedure breast biopsy (Routine) Status Reason Specialty Diagnoses / Referred By Referred To Procedures Contact Contact Authorized SELINA-SURGERY / Diagnoses Other abnormal and inconclusive findings on diagnostic imaging of breast Gianni Barth Vicki Surgery Procedures CONSULT/REFERRAL BREAST SURGERY MD Moni Coughlin MD [address], [phone] [place] [address] Phone: Fax: Encounter Details Date Type Department Care Team Description 06/21/2020 Office Visit [facility] Surgical Radha Archer [place] st mass in female Specialties - Jayla Montenegro MD (Primary Dx) [address] [place] [phone] Allergies No Known Allergiesdocumented as [...] demonstrated the same. Then on MRI from [facility] it showed the right breast was [...] pain reported 0/10. Pt preferred language is Mexican. Pt. denies fall in last 12 months. Allergies and medications reviewed and updated. documented in this encounter Plan of Treatment Date Type Specialty Care Team Description 06/28/2020 Office Visit Surgery Radha Archer MD [address] [place] [phone] Name Type Priority Associated Diagnoses [...]
--- OUTSIDE RECORDS SUMMARY | 2020-06-30 11:55 | XMS REPORT | Summary of Care ---
:1980 Author Organization [facility] - [facility] Address [address] [place] [address] Care Team Providers Name Role Phone Pcp, Patient Does Not Have A Primary Care Provider +1-000-00 0-0000 Reason for Visit Reason Comments Results biopsy Encounter Details Date Type Department Care Team Description 06/28/2020 Office Visit [facility] Surgical Radha Archer st mass in female Specialties - Jayla Montenegro MD (Primary Dx) [address] [facility], [address] [place] [address] [address] [place] [address] [phone] Allergies No Known Allergiesdocumented as of this encounter (statuses as of 06/29/2020) Medications Medication Sig Dispensed Refills Start Date End Date Status diazePAM 10 mg tablet 0 06/06/2020 Active OMEPRAZOLE ORAL Take by mouth. 0 Active LISINOPRIL ORAL Take by mouth. 0 Active dapagliflozin/metformin Take by mouth. 0 Active HCl (XIGDUO XR ORAL) documented as of this encounter (statuses as of 06/29/2020) Active Problems Problem Noted Date Breast mass in female 06/14/2020 documented as of this encounter (statuses as of 06/29/2020) Social History Tobacco Use Types Packs/Day Years [...] been in contact with No / Unsure 06/28/2020 1:07 PM CDT someone who was confirmed or suspected to have Coronavirus / COVID-19? documented as of this encounter Last Filed Vital Signs Vital Sign Reading Time Taken Comments Blood Pressure 133/90 06/28/2020 1:08 PM CDT Pulse 110 06/28/2020 1:08 PM CDT Temperature 36.6 C (97.8 F) 06/28/2020 1:08 PM CDT Respiratory Rate 18 06/28/2020 1:08 PM CDT Oxygen Saturation - - Inhaled Oxygen Concentration - - Weight 84.7 kg (186 lb 12.8 oz) 06/28/2020 1:08 PM CDT Height - - Body Mass Index 31.09 06/21/2020 2:28 PM CDT documented in this encounter Progress Notes Lizbeth Blue - 06/28/2020 1:00 PM CDOrianabrandon Boateng is a 40 year old female comes to clinic independent in ambulation for biopsy results. Pt comes accompanied by family member . Pt in NAD w/ pain reported 0/10. Pt preferred language is Romansh. Pt. denies fall in last 12 months. Allergies and medications reviewed and updated. [address] Lizbeth Blue 06/28/2020 1:10 PM Radha Aguilar MD - 06/28/2020 1:00 PM CDT Cc: Chief Complaint Patient presents with Results biopsy HPI Ag Boateng is one week status post bilateral breast core biopsy both of which showed FA. On the left it is not clear that the biopsy is concordant with the MRI so an MRI has been ordered to confirm concordance. I have discussed this case with Dr. Ruiz. Tristan Luong has No Known Allergies. Medications Outpatient Medications Prior to Visit Medication Sig Dispense Refill dapagliflozin/metformin HCl (XIGDUO XR ORAL) Take by mouth. diazePAM 10 mg tablet LISINOPRIL ORAL Take by mouth. OMEPRAZOLE ORAL Take by mouth. No facility-administered medications prior to visit. Histories No past medical history on file. No past surgical history on file. Social History Socioeconomic History Marital status: Single [...] file Gets together: Not on file Attends scientology service: Not on file Active member of [...] file Social History Narrative Not on file No family history on file. Review of Systems No contributory items. Vital Signs BP 133/90 (BP Location: Left arm, Patient Position: Sitting, BP CUFF SIZE: Adult Medium) | Pulse 110 | Temp 36.6 C (97.8 F) (Temporal Artery) | Resp 18 | Wt 186 lb 12.8 oz (84.7 kg) | BMI 31.09 kg/m Physical Exam Breast - core needle biopsy sites well healed. Some ecchymosis but no hematomas. Assessment/Plan Bilateral Fibroadenomas Will get mammograms to cofirm clip placement and scars produced Dr. Ruiz advises getting MRi to confirm biopsy of the MRI lesion. documented in this encounter Plan of Treatment Date Type Specialty Care Team Description 07/19/2020 Appointment Radiology Radha Archer MD [address] [place] [phone] 07/19/2020 Appointment Radiology Radha Archer MD [address] [place] [phone] Health Maintenance Due Date Last [...] in this encounter documented as of this encounter"
--- OUTSIDE RECORDS SUMMARY | 2020-06-30 11:55 | XMS REPORT | Summary of Care ---
:1980 Author Organization [facility] Address [address] [place] [address] Care Team Providers Name Role Phone Pcp, Patient Does Not Have A Primary Care Provider +1-000-00 0-0000 Reason for Referral MRI/CAT Scan (Routine) Status Reason Specialty Diagnoses / Referred By Referred To Procedures Contact Contact New Request Diagnostic Diagnoses Breast mass in female Gramm, Noreen Radiology Procedures MR GUIDED BIOPSY BREAST BILATERAL W WO CONTRAST A, ACCOUNT RESOLUTION EXPERT [address] [place] [address] MRI/CAT Scan (Routine) Status Reason Specialty Diagnoses / Referred By Referred To Procedures Contact Contact New Request Diagnostic Diagnoses Breast mass in female Gramm, Noreen Radiology Procedures MR BREAST BILATERAL W WO CONTRAST A, ACCOUNT RESOLUTION EXPERT [address] [place] [address] Reason for Visit Reason Comments BREAST MASS Encounter Details Date Type Department Care Team Description 06/28/2020 Case Management [facility] Urology- Gramm, Lauren la A, ACCOUNT RESOLUTION EXPERT BREAST MASS [place] [address] [place] [address] [place] [address] [phone] Allergies No Known Allergiesdocumented as of this encounter (statuses as of 06/28/2020) Medications Medication Sig Dispensed Refills Start Date End Date Status diazePAM 10 mg tablet 0 06/06/2020 Active OMEPRAZOLE ORAL Take by mouth. 0 Active LISINOPRIL ORAL Take by mouth. 0 Active dapagliflozin/metformin Take by mouth. 0 Active HCl (XIGDUO XR ORAL) documented as of this encounter (statuses as of 06/28/2020) Active Problems Problem Noted Date Breast mass in female 06/14/2020 documented as of this encounter (statuses as of 06/28/2020) Social History Tobacco Use Types Packs/Day Years [...] 06/28/2020 Office Visit Surgery Radha Archer MD [address] [place] [phone] 07/19/2020 Appointment Radiology Radha Archer MD [address] [place] [phone] 07/19/2020 Appointment Radiology Radha Archer MD [address] [place] [phone] Name Type Priority Associated Diagnoses Order S chedule MR BREAST BILATERAL W WO IMAGING Routine Breast mass in f emale Expected: 06/28/2020, CONTRAST Expires: 2020 MR GUIDED BIOPSY BREAST IMAGING Routine Breast mass in fe male Expected: 06/28/2020, BILATERAL W WO CONTRAST Expi res: 06/28/2021 Health Maintenance Due Date Last Done Comments [...] Dates Phone Address Type [employer] CIG[employer] GENERIC [phone] 2020-Present HMO/PPO/POS documented as of this encounter
--- OUTSIDE RECORDS SUMMARY | 2020-06-30 11:55 | XMS REPORT | Summary of Care ---
:1980 Author Organization [facility] - [facility] Address [address] [place] [address] Care Team Providers Name Role Phone Pcp, Patient Does Not Have A Primary Care Provider +1-000-00 0-0000 Reason for Visit Reason Comments Results biopsy Encounter Details Date Type Department Care Team Description 06/28/2020 Office Visit [facility] Surgical Radha Archer st mass in female Specialties - Jayla Montenegro MD (Primary Dx) [address] [facility], [address] [place] [address] [address] [place] [phone] Allergies No Known Allergiesdocumented as of this [...] pain reported 0/10. Pt preferred language is Setswana. Pt. denies fall in last 12 months. Allergies and medications reviewed and updated. [address] Lizbeth Blue 06/28/2020 1:10 PM Radha [...] discussed this case with Dr. Ruiz. Tristan Luogn has No Known Allergies. Medications Outpatient Medications [...] Description 07/19/2020 Appointment Radiology Radha Archer MD [address] [place] [phone] 07/19/2020 Appointment Radiology Radha Archer MD [address] [place] [phone] Health Maintenance Due Date Last [...]
[2020-06-30] MEDS ORDERED: SCOPOLAMINE HYDROBROMIDE PATCH TD ONE (12:04)
[2020-06-30] MEDS ORDERED: NA CHLORIDE 0.9% 1,000 ML ONE (12:04)
[2020-06-30 12:06] LABS: Specific Gravity >= 1.030 (1.005-1.030)
[2020-06-30] MEDS ORDERED: dexAMETHasone 10 MG/ML VIAL ONE (13:21)
[2020-06-30] MEDS ORDERED: FENTANYL CITR 250 MCG/5 ML ONE (13:21)
[2020-06-30] MEDS ORDERED: propofoL 200 MG/20 ML VIAL IV ONE (13:21)
[2020-06-30] MEDS ORDERED: MIDAZOLAM HCL 2 MG/2 ML INJ ONE (13:21)
[2020-06-30] MEDS ORDERED: ROCURONIUM 50 MG/5 ML VIAL IV ONE (13:21)
[2020-06-30] MEDS ORDERED: LIDOCAINE 2% MPF 5 ML VIAL ONE (13:21)
[2020-06-30] MEDS ORDERED: ONDANSETRON 4 MG/2 ML VIAL ONE ×2 (13:23→16:58)
[2020-06-30] MEDS: BUPIVACAINE 0.25% PF 30 ML VIAL ONE ×2 (14:33→15:44)
[2020-06-30] MEDS: CEFAZOLIN/SWI 1gm 2 GM/20 ML SYR ONE ×2 (14:33→14:45)
[2020-06-30] MEDS ORDERED: EPHEDRINE SULF 50 MG/ML VIAL ONE (14:58)
[2020-06-30] MEDS ORDERED: Ringers Lactate 1,000 ML IV ONE (15:12)
[2020-06-30] MEDS ORDERED: KETOROLAC 30 MG/ML INJ ONE (15:51)
[2020-06-30] MEDS ORDERED: BUPIVACAINE 0.5% PF 10 ML VIAL ONE (15:57)
[2020-06-30] MEDS: HYDROMORPHONE HCL 1 MG/ML INJ ONE ×2 (16:29→16:43)
[2020-06-30 17:14] VITALS: BP 127/79; TEMP 97.1; O2SAT 95
[2020-06-30] MEDS ORDERED: HYDROCODONE/APAP 5/325 MG TAB ONE (17:34)
--- NOTE | 2020-07-02 07:58 | OP ---
Date of Procedure: 06/30/2020 Surgeon: Madyson Barth MD [employer] Operator: Andra Calle. Preoperative Diagnoses: Menorrhagia, dysmenorrhea, and lack of permanent sterilization to prevent co nception after endometrial ablation due to risks. Postoperative Diagnoses: Menorrhagia, dysmenorrhea, and lack of permanent sterilization to prevent c onception after endometrial ablation due to risks. Procedures Performed: Diagnostic hysteroscopy, endometrial ablation with NovaSure, diagnostic laparo scopy, bilateral salpingectomy, and sigmoid adhesions. Anesthesia: General endotracheal. Specimens: Bilateral tubes. Complications: No complications. Drains: No drains. Condition: The patient's condition, stable. Findings: Per ablation, uterine cavity length was 5 cm, width 3.7, power 102 charles, ablation cycle t reese 1 minute 31 seconds. Excellent ablation was visualized in the entire endometrial cavity with the hysteroscope after the procedure. On laparoscopy, there were adhesions in the left lower quadrant, which were taken down in order for me to visualize the tube. The tube on the left and right were bot h completely removed without any problems. The patient tolerated the procedure well. Brief History And Physical: The patient is a 40-year-old with heavy menstrual bleeding and anemia. She is also a diabetic. On transvaginal ultrasound, her uterus was enlarged, 10.5 cm with thick endo metrial lining. The endometrial cavity was sampled and there was no atypia or malignancy. So, discu ssed about different options including Mirena IUD ablation. Alongside this current problem, she also had some breast complaint. The breast imaging was equivocal and breast MRI was done. All the resul ts were reviewed. There was a right breast 2.4 cm mass that is likely benign. An 11 mm left breast mass that also was suspicious until an ultrasound-guided biopsy was performed the patient also has history of non-Hodgkin's lymphoma disease 15 years ago. She is taken care for di abetes, which is not fully controlled. Her periods, although not very regular, they do occur very cr ampy and very heavy with clots at work and she definitely wanted to get this resolved. So, after discussion of an IUD versus an ablation, we were leaning towards an IUD placement initially , but after the evolution of the breast problem, discussed about avoiding any hormone related medicat ions especially given the pending biopsy, so she wanted to proceed with an ablation due to which the question of sterilization had come up. Vasectomy was not an option for this patient this time, so shabbir quinn wanted to proceed with tubal sterilization permanent alongside on the ablation due to the risk of p ostablation conception. After completely discussing the benefits and risks and given the possibility that the best pathology, possibly a malignancy, risk production of ovarian cancer with removal of bi lateral tubes recommended was discussed and counseled of the better options to the patient. After co nsent, she was brought to the OR. Description Of Procedure: After informed consent was verified, she was taken back to OR. 2 g of Anc ef were given. She was placed in supine fashion on operating table. General anesthesia was given, p laced in dorsal lithotomy position using Jerrell stirrups. Abdomen, vulva, vagina, and perineum were p repped and draped in a sterile fashion. Estrada was placed to drain the bladder. Speculum placed to e xpose the cervix. Anterior lip grasped with 2 Allis clamps. Diagnostic SlimLine hysteroscope was us ed to perform a hysteroscopy. The sounding length was 9 cm, cervical length 4. So, cavity length wa s calculated at 5 cm of width. After the scope was removed, the NovaSure ablation device was taken o ut of the package, primed and inserted into the uterine cavity and deployed. The width was 3.7 cm, t he power was 102 charles, and the ablation cycle, although it was interrupted initially, the Allis clam p was changed to a tenaculum and then there was occlusion of the cervical canal and the entire ablati on cycle was conducted without any other interruptions. After the device was undeployed in the usual fashion and handed out, scope was placed in the uterine cavity. The cavity rinsed out and has an ex cellent ablation effect that was verified. Scope was pulled out. Diagnostic uterine manipulator was introduced into the uterine cavity. Once the area in the bottom was draped, 1 cm infraumbilical incision made with scalpel using open lap aroscopy technique. Fascia was incised, tagged with sutures. The umbilical hernia above the level o f the fascial incision where I placed, there was no intent for fixing the umbilical hernia, so went t o the peritoneal cavity, insufflated. Site of entry was checked, unremarkable. A 5 mm suprapubic an d left lower quadrant ports were placed under direct vision after entire cavity was visualized. Only scar was the abnormality. No endometriosis was seen. Both ovaries normal. Both tubes had hydropic changes. Thorough irrigation and suction was performed. Then, the fimbriated end of the t ube was not visualized as there were adhesions after the natural attachment of the colon to the left side. Once these adhesions were taken down all from the mesosalpinx with the help of the LigaSure an d sharp dissection with scissors, then the entire tube was visualized. The tube was taken down with the help of the LigaSure pulled out, handed off for permanent pathology. The coronal end of the left tube was bleeding. It was cauterized with the bipolar basket tip for excellent hemostasi s. Then, injection with Marcaine was done at the skin and the fascia after pulling the trocars out, verified that there was no bleeding and hemostasis was excellent. The Estrada pulled out. Once the tr ocars were removed, suprapubic and left lower quadrant ports were injected and umbilical trocar was r emoved after desufflating in close fashion. The fascia closed with the help of 0 Vicryl sutures, tie d to each other. All skin incisions were closed with interrupted 4-0 Vicryl. Estrada and VCare uterin e manipulator were removed. Instrument, needle, and sponge counts were correct at the end of the raciel e. The patient tolerated the procedure well. She will follow up with me in 1 week and 4 weeks. YECENIA/KAYLEEN Voice ID: [id number] Report ID: [id number]
== END 2020-06-30 18:00 | disposition home or self-care (01) ==
LOC: OR 11:37
PROVIDERS: ATTEND Obstetrics & Gynecology
PROC: 0U5B8ZZ Destruction of Endometrium, Via Natural or Artificial Opening Endoscopic (ICD-10-PCS; 2020-06-30)
PROC: 0UT74ZZ Resection of Bilateral Fallopian Tubes, Percutaneous Endoscopic Approach (ICD-10-PCS; principal; 2020-06-30 14:30)
DX: Z30.2 Encounter for sterilization (principal); N92.1 Excessive and frequent menstruation with irregular cycle; K66.0 Peritoneal adhesions (postprocedural) (postinfection); K42.9 Umbilical hernia without obstruction or gangrene; E11.65 Type 2 diabetes mellitus with hyperglycemia; E78.00 Pure hypercholesterolemia, unspecified; F17.210 Nicotine dependence, cigarettes, uncomplicated; Z11.59 Encounter for screening for other viral diseases; Z79.84 Long term (current) use of oral hypoglycemic drugs; Z79.899 Other long term (current) drug therapy; N94.6 Dysmenorrhea, unspecified; Z85.72 Personal history of non-Hodgkin lymphomas
CPT/HCPCS: 85025; 36415; 86900; 86850; 81025; 86901; 82947 ×2; 88302; 81003; 58661; 58563; J2704; J2250; J3010; J1100; J1170; J0690; J7120; J7030; J2405 ×2; 88305